=== PATIENT | female | born 1955 ===

== ENCOUNTER 2025-02-16 07:00 | Outpatient (CLI) | payer OTHER ==
[~2025-02-16] VITALS: Ht 160 cm; Wt 100.7 kg
[2025-02-16] MEDS ORDERED: LOSARTAN POTAS100 MG PO (10:05)
[2025-02-16] MEDS ORDERED: NORVASC2.5 M1 PO (10:06)
[2025-02-16] MEDS ORDERED: IRBESARTAN-HCT1 EACH PO (10:06)
[2025-02-16] MEDS ORDERED: EFFEXOR XR150 MG PO (10:07)
[2025-02-16] MEDS ORDERED: TOPROL XL50 M1 PO (10:07)
[2025-02-16] MEDS ORDERED: LIPITOR40 MG PO (10:07)
[2025-02-16 10:08] VITALS: BP 126/75
[2025-02-16 10:08] LABS: URINE APPEARANCE Turbid; URINE BILIRRUBIN Negative (NEGATIVE); URINE BLOOD Small; URINE COLOR Yellow; URINE GLUCOSE Negative (NEGATIVE); URINE KETONE Negative (NEGATIVE); URINE LEUKOCYTE Large; URINE NITRATE Negative; URINE PROTEIN 30 (NEGATIVE); URINE UROBILINOGEN 0.2 E.U./dl
[2025-02-16] MEDS ORDERED: SEROQUEL300 MG PO (10:08)
[2025-02-16] MEDS ORDERED: GRALISE600 MG PO (10:08)
[2025-02-16 10:12] LABS: URINE EPITHELIAL CELLS 69.5 uL (0.0-38.8); URINE RBC 41.4 uL (0.0-20.8)
[2025-02-16 10:16] LABS: BASO % 0.7 % (0.1-1.2); EOS # 0.35 (0.04-0.54); EOS % 4.9 % (0.7-7.0); LYMPH # 1.92 (1.18-3.74); LYMPH % 26.9 % (19.3-53.1); MEAN PLATELET VOLUME 11.50 fl (9.4-12.4); MONO # 0.52 (0.24-0.82); MONO % 7.3 % (4.7-12.5); NEUT # 4.29 (1.56-6.13); NEUT % 59.9 % (34.0-71.1); RED CELL DISTRIBUTION WIDTH 15.7 % (11.6-14.4)
[2025-02-16 10:19] LABS: URINE BACTERIA > 9821.5 uL (0.0-1933); URINE CAST 0.55 uL (0.0-1.40); URINE WBC > 5548.3 uL (0.0-23.2)
[2025-02-16 10:49] LABS: INR 1.1
[2025-02-16 11:14] LABS: BUN CREA RATIO 13.0 (7.0-25.0); CREATININE SERUM 1.53 mg/dL (0.55-1.02); GFR 33.75; GLUCOSE FASTING 181.0 mg/dL (65-100); OSMOLALITY SERUM 283.0 MOSM/KG (275-295)
[2025-02-16 11:50] LABS: RH POSITIVE
[2025-02-16] MEDS ORDERED: HUMALOG100 UNIT/2 (14:21)
[2025-02-16] MEDS ORDERED: LANTUS SOL100 UNIT/1 (14:21)
== END 2025-02-16 07:15 | disposition home or self-care (01) ==
LOC: RAD 07:00 → SURH 02-21 09:00 → EDSTATUS 02-21 09:00 → SURH 02-21 12:00
PROVIDERS: ATTEND Orthopaedic Surgery Sports Medicine
DX: D68.9 Coagulation defect, unspecified (principal); I10 Essential (primary) hypertension; Z01.818 Encounter for other preprocedural examination